=== PATIENT | female | born 1985 | race Caucasian/White ===

== ENCOUNTER 2017-07-16 10:33 | Emergency (ER) | payer MEDICAID ==
[2017-07-16] MEDS ORDERED: HYDROmorphone 2 MG/ML Syringe ONE ×3 (11:15→11:42)
[2017-07-16] MEDS: HYDROmorphone 4 MG/ML Syringe SUBCUT ONE (11:40)
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
== END 2017-07-16 11:45 ==
LOC: LB.ED 10:33
DX: Z04.1 Encounter for examination and observation following transport accident (principal); O99.89 Other specified diseases and conditions complicating pregnancy, childbirth and the puerperium; M25.551 Pain in right hip; M54.6 Pain in thoracic spine; Z3A.15 15 weeks gestation of pregnancy; V43.62XA Car passenger injured in collision with other type car in traffic accident, initial encounter
CPT/HCPCS: 71045; 96372; 99284; A0425; A0429; J1170